=== PATIENT | male | born 1980 | race Caucasian/White ===

== ENCOUNTER 2019-09-10 15:11 | Emergency (ER) | payer MEDICAID ==
[~2019-09-10] VITALS: Ht 180.3 cm; Wt 81.2 kg
[2019-09-10 15:20] VITALS: BP_SYST 131
--- NOTE | 2019-09-10 15:24 | NUR ---
Patient to ER bed 03 for evaluation. Side rails up.
[2019-09-10] MEDS ORDERED: HALOPERIDOL LACTATE 5 MG/ML VIAL IVP ONE ×2 (15:30→16:45)
[2019-09-10] MEDS ORDERED: DIPHENHYDRAMINE INJ 50 MG/ML VIAL IVP ONE (15:30)
[2019-09-10] MEDS ORDERED: NACL 0.9% 1,000 ML IV ONE (15:30)
[2019-09-10] MEDS ORDERED: ONDANSETRON HCL 4 MG/2 ML VIAL IVP ONE ×2 (15:30→16:45)
--- NOTE | 2019-09-10 15:38 | NUR ---
ER Dr. Kulkarni at bedside examining patient.
--- NOTE | 2019-09-10 15:45 | NUR ---
Pt AAO x 4, speaks [place]ian, restless and yelling. Pt complained of anxiety, stating it is related to majijuana usage. Pt denies pain but appears very agitated.
--- NOTE | 2019-09-10 17:57 | NUR ---
Patient given written and verbal discharge instructions and verbalizes understanding. ER MD discussed with patient the results and treatment provided. Patient in stable condition. ID arm band removed. IV catheter removed intact and dressing applied, no active bleeding. Rx of Ativan and Zofran given. Patient educated on pain management and to follow up with PMD. Pain Scale 0/10. Opportunity for questions provided and answered. Medication side effect fact sheet provided.
[2019-09-10 17:58] VITALS: BP_SYST 142
== END 2019-09-10 17:57 | disposition home or self-care (01) ==
LOC: SED 15:11
DX: F41.9 Anxiety disorder, unspecified (principal); F32.9 Major depressive disorder, single episode, unspecified; R11.2 Nausea with vomiting, unspecified; F12.90 Cannabis use, unspecified, uncomplicated; Z88.8 Allergy status to other drugs, medicaments and biological substances
CPT/HCPCS: 96361; 96374; 96375; 99284; J1200; J1630; J2405; J7030